=== PATIENT | female | born 1960 | race Two or more races ===

== ENCOUNTER 2023-10-27 22:47 | Emergency (ER) | payer MEDICAID, OTHER ==
[~2023-10-27] VITALS: Ht 160 cm; Wt 118.0 kg
[2023-10-28 00:49] VITALS: BP 153/54; PULSE 54; RESP 18; TEMP 98.7; O2SAT 98
[2023-10-28] MEDS: HYDROcodone-ACET 5/325MG TAB PO ONE (03:51)
[2023-10-28] MEDS ORDERED: AUG875T PO (03:52)
[2023-10-28] MEDS: TETANUS-DIPTH-ACEL PERTUSSIS 0.5ML SYR Tdap IM ONE (04:02)
== END 2023-10-28 04:06 | disposition home or self-care (01) ==
LOC: ER 22:47
DX: S61.411A Laceration without foreign body of right hand, initial encounter (principal); Z79.899 Other long term (current) drug therapy; W45.8XXA Other foreign body or object entering through skin, initial encounter; Y93.89 Activity, other specified; Y92.89 Other specified places as the place of occurrence of the external cause; Y99.8 Other external cause status
CPT/HCPCS: 12002; 90471; 90715